=== PATIENT | male | born 1980 | race Caucasian/White ===

== ENCOUNTER 2017-08-04 01:55 | Emergency (ER) | payer OTHER ==
--- NOTE | 2017-08-04 02:00 | EDPHY ---
H & P Time Seen by Provider: 08/04/17 01:59 HPI/ROS: Chief complaint: Sore throat, painful swelling, change in voice. HPI: This is a 36-year-old medically stable male who has longstanding history of hypertension. I that a chance to review all records. Of note is that in 2012 there was some question as to his alcohol intake being excessive. At this time he states he has does not believe he has an alcohol problem and is not currently actively drinking. He has a negative CAGE Questionnaire He is here tonight for sore throat. This began some 4 nights ago. It is associated with painful swallowing. At times he has had some sense of fever but no actual temperatures have been taken. Furthermore he has not noted swollen glands, changes in his hearing, or other symptoms. Specifically he has had no plugging of nose, nasal drainage, nor blowing of nose nor cough. He did get the seasonal influenza this year. His spouse is really had a cough but that was resolved. He has had no known exposure to anybody with concurrent strep or other sore throat problems. Furthermore, he has not had any temperature exposures such as smoking a pipe which might damage his uvula-see below. The sore throat is moderate to severe. He tried some Tylenol approximately 28 hr ago 1000 mg with little relief. He has not tried any ibuprofen. When talking about using them in combination I offered to him a stronger medicine such as Vicodin or oxycodone. He has declined. ROS: Constitutional - subjective sense of fever, but no chills Eyes - no discharge, or injection ENT - no earache, change in hearing, difficulty swallowing. Respiratory - No Shortness of breath, phlegm, wheezing or pleuritic chest pain. There is no cough. Musculoskeletal - no joint or muscle pain. Integument - no rashes. Neurological - no headache, numbness, tingling, or paresthesias. No focal motor weakness. Immunological - no swelling or lymphadenopathy 10 point ROS otherwise negative Physical Exam: Gen: Well developed, well nourished. Nontoxic. afebrile VSS thin man. He is able to handle his secretions however his voice does sound somewhat muffled. HEENT: Normocephalic. Ears: TMs are clear. Hearing normal as tested by finger rubbing. Eyes: PERRL. No conjunctival injection or pallor. no jaundice. Nose: No nasal discharge. Sinuses are nontender. Throat: Membranes are moist. Oropharynx is without erythema or exudate. He has a muffled voice. There is a small degree of uvula edema, but not as much as I would expect to explain his change in voice. There is no laryngeal tenderness. Neck: Trachea is in the ML. No laryngeal tenderness. No adenopathy Lungs: No respiratory distress. Skin: Good color, without pallor. There is no diaphoresis. Skin is warm and dry , without diaphoresis. Intact without rashes Constitutional: Initial Vital Signs Temperature (C) 37.0 C 08/04/17 01:56 Heart Rate 78 08/04/17 01:56 Respiratory Rate 18 08/04/17 01:56 Blood Pressure 150/96 H 08/04/17 01:56 O2 Sat (%) 96 08/04/17 01:56 O2 Delivery Mode Room Air Allergies/Adverse Reactions: No Known Allergies Allergy (Unverified 06/17/13 10:21) Home Medications: Medication Instructions Recorded Lisinopril 06/17/13 Clindamycin 2 tab PO Q6 #80 cap 08/04/17 Medical Decision Making - Diagnostics Imaging Results: My Plain Film Review: Plain film of neck soft tissue three view series. Film reviewed by me on the [employer], and interpreted by me contemporaneously as follows: Normal retropharynx. No signs of retropharyngeal abscess. Normal epiglottis. Imaging: I viewed and interpreted images myself ED Course/Re-evaluation: A strep check performed at triage was negative on a preliminary basis He was given both Tylenol and Ibuprofen for his pain. Given his change in voice with minimal findings though slight uvular edema a soft tissue series of the neck was performed as follows: Negative for epiglottitis. Differential Diagnosis: Diagnostic considerations include, but are not limited to, the following: Retropharyngeal abscess, epiglottitis, URI, sinusitis, pharyngitis, otitis media , pneumonia, allergy, influenza, strep throat, viral pharyngitis, uvulitis - Data Points Laboratory Results: 08/04/17 Unknown Group A Strep DNA NEGATIVE (NEGATIVE) Medications Given: Discontinued Medications Acetaminophen (Tylenol) 1,000 mg PO EDNOW ONE Stop: 08/04/17 02:21 Last Admin: 02/03/18 02:21 Dose: 1,000 mg Clindamycin (Clindamycin) 300 mg PO EDNOW ONE PRN Reason: Protocol Stop: 08/04/17 02:46 Last Admin: 08/04/17 02:48 Dose: 300 mg Dexamethasone (Decadron) 10 mg PO EDNOW ONE Stop: 08/04/17 02:40 Last Admin: 08/04/17 02:47 Dose: 10 mg Ibuprofen (Motrin) 400 mg PO EDNOW ONE Stop: 08/04/17 02:21 Last Admin: 08/04/17 02:21 Dose: 400 mg Departure - Departure Disposition: Home, Routine, Self-Care Clinical Impression: Uvulitis Condition: Good Instructions: Clindamycin (By mouth), Strep Throat (ED), Uvulitis (ED) Additional Instructions: Tylenol and Advil works well together the combination: Tylenol 650 mg and Advil 400 mg every 6 hours. Your given a dose of Decadron here. This will last for 3 days, you will not need to take anything further. Antibiotic: Clindamycin. If when you get to the pharmacy it is too expensive for you, have them call us to see about an alternative. If you developed diarrhea while on the antibiotic, Call your family physician. Blood pressure was a little high tonight, 150/96. It might be due to your illness as you have not slept well. Nonetheless, have this rechecked in the next week when your feeling better. Referrals: Patient,NotPresent [Primary Care Provider] - As per Instructions Stand Alone Forms: Work Excuse Prescriptions: Clindamycin 2 tab PO Q6 #80 cap
[2017-08-04 02:02] VITALS: RESP 18; O2SAT 96
[2017-08-04] MEDS ORDERED: IBUPROFEN 200 MG TAB PO ONE ×2 (02:17→02:20)
[2017-08-04] MEDS ORDERED: ACETAMINOPHEN 500 MG TAB ONE (02:19)
[2017-08-04] MEDS ORDERED: ACETAMINOPHEN 500 MG TAB PO ONE (02:20)
[2017-08-04] MEDS ORDERED: DEXAMETHASONE 4 MG TAB PO ONE (02:39)
[2017-08-04] MEDS ORDERED: CLINDAMYCIN 150 MG CAP PO ONE (02:45)
[2017-08-04] MEDS ORDERED: CLINDAMYCIN 150 MG CAP ONE ×2 (02:46→02:47)
[2017-08-04 03:03] VITALS: BP 148/90; PULSE 72; TEMP 99
== END 2017-08-04 03:07 | disposition home or self-care (01) ==
LOC: CED 01:55
DX: K12.2 Cellulitis and abscess of mouth (principal)
CPT/HCPCS: 70360-PO; 87880-PO

== ENCOUNTER 2017-10-03 22:33 | Emergency (ER) | payer OTHER ==
[2017-10-03] MEDS ORDERED: CARBAMIDE PEROXIDE 15 ML OTIC.BTL RTEAR ONE (22:35)
--- NOTE | 2017-10-03 22:37 | EDPHY ---
H & P Time Seen by Provider: 10/03/17 22:37 HPI/ROS: HPI CHIEF COMPLAINT: Clogged right ear HISTORY OF PRESENT ILLNESS: Patient 36-year-old male, history of hypertension, otherwise healthy does not take any daily medications except lisinopril he presents emergency room with a clogged right ear. Patient states that he cannot hear out of his right ear. He is concerned that he may have gotten water in it today. Denies any fever significant pain. Past Medical History: Hypertension on lisinopril Past Surgical History: Denies recent surgical history Social History: Denies drugs alcohol tobacco Family History: Noncontributory ROS REVIEW OF SYSTEMS: A comprehensive 10 point review of systems is otherwise negative aside from elements mentioned in the history of present illness. Exam Constitutional appears well nontoxic no acute distress triage nursing summary reviewed, vital signs reviewed, awake/alert. Eyes normal conjunctivae and sclera, EOMI, PERRLA. HENT right ear canal shows cerumen impaction no visible foreign body, unable to visualize TM due to cerumen impaction, left TM canal normal posterior pharynx normal normal inspection, atraumatic, moist mucus membranes, no epistaxis, neck supple/ no meningismus, no raccoon eyes. Respiratory clear to auscultation bilaterally, normal breath sounds, no respiratory distress, no wheezing. Cardiovascular rate normal, regular rhythm, no murmur, no edema, distal pulses normal. Gastrointestinal soft, non-tender, no rebound, no guarding, normal bowel sounds, no distension, no pulsatile mass. Genitourinary no CVA tenderness. Musculoskeletal no midline vertebral tenderness, full range of motion, no calf swelling, no tenderness of extremities, no meningismus, good pulses, neurovascularly intact. Skin pink, warm, & dry, no rash, skin atraumatic. Neurologic awake, alert and oriented x 3, AAOx3, moves all 4 extremities equally, motor intact, sensory intact, CN II-XII intact, normal cerebellar, normal vision, normal speech. Psychiatric normal mood/affect. Heme/Lymph/Immune no lymphadenopathy. Differential Diagnosis: Includes but is not limited to in a particular order cerumen impaction Medical Decision Making: Plan for this patient will irrigate right ear out to remove cerumen to get patient relief. 2239: Will irrigate ear canal out. 2243: Patient's right ear canal was irrigated out. Improved symptoms. Cerumen was removed. Source: Patient - Medical/Surgical History Hx Asthma: No Hx Chronic Respiratory Disease: No Hx Diabetes: No Hx Cardiac Disease: No Hx Renal Disease: No Hx Alcoholism: Yes Hx HIV/AIDS: No Hx Splenectomy or Spleen Trauma: No Other PMH: htn. Anxiety - Social History Smoking Status: Former smoker Allergies/Adverse Reactions: No Known Allergies Allergy (Unverified 06/17/13 10:21) Home Medications: Medication Instructions Recorded Lisinopril 06/17/13 Clindamycin 2 tab PO Q6 #80 cap 08/04/17 Departure - Departure Disposition: Home, Routine, Self-Care Clinical Impression: Cerumen impaction Qualifiers: Laterality: right Qualified Code(s): H61.21 - Impacted cerumen, right ear Condition: Good Instructions: Cerumen Impaction (ED)
[2017-10-03] MEDS ORDERED: CARBAMIDE PEROXIDE 15 ML OTIC.BTL ONE (22:41)
[2017-10-03 22:48] VITALS: TEMP 97.9
[2017-10-03 23:17] VITALS: BP 150/98; PULSE 65; RESP 14; O2SAT 99
== END 2017-10-03 23:10 | disposition home or self-care (01) ==
LOC: CED 22:33
PROC: 3E1B78Z Irrigation of Ear using Irrigating Substance, Via Natural or Artificial Opening (ICD-10-PCS; principal; 2017-10-03)
DX: H61.21 Impacted cerumen, right ear (principal); I10 Essential (primary) hypertension; Z87.891 Personal history of nicotine dependence

== ENCOUNTER 2017-12-29 14:45 | Emergency (ER) | payer OTHER ==
--- NOTE | 2017-12-29 14:59 | EDPHY ---
H & P Stated Complaint: R arm pain and epigastric pain starting today. Denies NVD, chest pain, SOB Time Seen by Provider: 12/29/17 14:59 HPI/ROS: HPI CHIEF COMPLAINT: Abdominal pain HISTORY OF PRESENT ILLNESS: Patient 37-year-old male, history of hypertension, he presents emergency room multiple complaints however his main complaint is epigastric abdominal pain. States this started around 11:00 a.m. Is now 3 o' clock in the afternoon. He has had constant for the past 4 hr. It got better after he ate. He denies any chest pain or shortness of breath or pleuritic pain. Main complaint epigastric abdominal pain that does not radiate anywhere. Describes achy in sensation. He has not any vomiting he denies any nausea or diarrhea denies urinary symptoms denies back pain or chest pain. Denies focal numbness or tingling. Additional complaint he states that he has had right shoulder pain for months and is worse after he goes to lift up something. It is laterally located on his right shoulder. Worse when he moves his right arm. Or when he does strenuous activity. Past Medical History: Hypertension Past Surgical History: Denies any abdominal surgeries Social History: Denies drugs alcohol tobacco. Family History: Noncontributory ROS REVIEW OF SYSTEMS: A comprehensive 10 point review of systems is otherwise negative aside from elements mentioned in the history of present illness. Exam Constitutional nontoxic appearing in no acute distress triage nursing summary reviewed, vital signs reviewed, awake/alert. Eyes normal conjunctivae and sclera, EOMI, PERRLA. HENT normal inspection, atraumatic, moist mucus membranes, no epistaxis, neck supple/ no meningismus, no raccoon eyes. Respiratory clear to auscultation bilaterally, normal breath sounds, no respiratory distress, no wheezing. Cardiovascular rate normal, regular rhythm, no murmur, no edema, distal pulses normal. Gastrointestinal mild tender palpation epigastric, no rebound, no guarding, normal bowel sounds, no distension, no pulsatile mass. Genitourinary no CVA tenderness. Musculoskeletal no midline vertebral tenderness, full range of motion, no calf swelling, no tenderness of extremities, no meningismus, good pulses, neurovascularly intact. Skin pink, warm, & dry, no rash, skin atraumatic. Neurologic awake, alert and oriented x 3, AAOx3, moves all 4 extremities equally, motor intact, sensory intact, CN II-XII intact, normal cerebellar, normal vision, normal speech. Psychiatric normal mood/affect. Heme/Lymph/Immune no lymphadenopathy. Differential diagnosis includes but is not limited to and in no particular order : Bowel obstruction, appendicitis, gallbladder disease, diverticulitis, colitis , enteritis, perforated viscus, gastritis, GERD, esophagitis, urinary tract infection, pyelonephritis, kidney stones Medical Decision Making: Plan for this patient IV establishment IV fluid bolus GI cocktail to see if this improves his discomfort, EKG, chest x-ray, abdominal labs, low threshold for imaging. Re-evaluation: EKG interpretation by me on record in [employer] system. Impression time of EKG 1509, this is sinus rhythm rate of 80 to there is no ST elevation or ST depression no significant T-wave abnormalities unremarkable nonischemic EKG. ED x-ray chest one view negative for acute cardiopulmonary disease. 1720: Patient re-evaluated this time resting comfortably no acute distress abdomen is soft nontender. He is not vomiting. States he feels much better after GI cocktail. Review his labs show a normal troponin. Normal lipase. He has a nonischemic EKG. Additionally chest anxious shows no acute cardiopulmonary disease. I believe his epigastric discomfort is consistent with gastritis. Versus peptic ulcer disease. Recommend illness the medication follow up with his primary care doctor. Additionally he understands to return to the emergency room if he develops worsening abdominal pain fever vomiting. He understands. Source: Patient - Personal History Current Tetanus Diphtheria and Acellular Pertussis (TDAP): Yes Tetanus Vaccine Date: within 10 years - Medical/Surgical History Hx Asthma: No Hx Chronic Respiratory Disease: No Hx Diabetes: No Hx Cardiac Disease: No Hx Renal Disease: No Hx Cirrhosis: No Hx Alcoholism: Yes Hx HIV/AIDS: No Hx Splenectomy or Spleen Trauma: No Other PMH: HTN. Anxiety - Social History Smoking Status: Former smoker Constitutional: Initial Vital Signs Temperature (C) 36.6 C 12/29/17 14:50 Heart Rate 79 12/29/17 14:50 Respiratory Rate 18 12/29/17 14:50 Blood Pressure 143/102 H 12/29/17 14:50 O2 Sat (%) 98 12/29/17 14:50 O2 Delivery Mode Room Air Allergies/Adverse Reactions: No Known Allergies Allergy (Verified 06/30/18 14:50) Home Medications: Medication Instructions Recorded Lisinopril 06/17/13 Ranitidine HCl [Zantac] 150 mg PO DAILY #14 tablet 12/29/17 Medical Decision Making - Diagnostics Imaging Results: Imaging Impressions Chest X-Ray 12/29/17 15:05 Impression: Negative. - Data Points Laboratory Results: Laboratory Results 12/29/17 15:00 12/29/17 12/29/17 12/29/17 16:03 15:49 15:22 WBC RBC Hgb Hct MCV MCH MCHC RDW Plt Count MPV Neut % (Auto) Lymph % (Auto) [place] % (Auto) Eos % (Auto) Baso % (Auto) Nucleat RBC Rel Count Absolute Neuts (auto) Absolute Lymphs (auto) Absolute Monos (auto) Absolute Eos (auto) Absolute Basos (auto) Absolute Nucleated RBC Immature Gran % Immature Gran # POC Blood Source Patient Temperature POC VBG pH POC VBG pCO2 POC VBG pO2 POC VBG HCO3 POC VBG Total CO2 POC VBG Base Excess POC Mix VBG O2 Sat POC Sodium 140 mEq/L mEq/L (135-145) POC Potassium 4.0 mEq/L mEq/L (3.3-5.0) POC Chloride 106.0 mEq/L mEq/L (97-110) POC Total CO2 28 mEq/L mEq/L (22-31) POC BUN 18 mg/dL mg/dL (7-23) POC Creatinine 1.5 mg/dL H mg/dL (0.7-1.3) POC Glucose 70 mg/dL mg/dL (70-100) POC Lactic Acid [place] POC Calcium 9.4 mg/dL mg/dL (8.5-10.4) POC Total Bilirubin 0.9 mg/dL mg/dL 0.8 mg/dL mg/dL (0.1-1.4) (0.1-1.4) POC GGT 12 IU/L IU/L (5-65) POC AST 36 IU/L IU/L 38 IU/L IU/L (17-59) (17-59) POC ALT 29 IU/L IU/L 36 IU/L IU/L (21-72) (21-72) POC Alk Phosphatase 63 IU/L IU/L 68 IU/L IU/L (38-126) (38-126) POC Troponin I 0.00 ng/mL ng/mL (0.00-0.08) POC Total Protein 7.1 g/dL g/dL 7.4 g/dL g/dL (6.3-8.2) (6.3-8.2) POC Albumin 4.0 g/dL g/dL 4.0 g/dL g/dL (3.5-5.0) (3.5-5.0) POC Amylase 72 IU/L IU/L (30-110) Lipase Urine Color Urine Appearance Urine pH Ur Specific [place] Urine Protein Urine Ketones Urine Blood Urine Nitrate Urine Bilirubin Urine Urobilinogen Ur Leukocyte Esterase Urine Glucose 12/29/17 12/29/17 12/29/17 15:18 15:13 15:00 WBC 7.56 10^3/uL 10^3/uL (3.80-9.50) RBC 5.03 10^6/uL 10^6/uL (4.40-6.38) Hgb 14.9 g/dL g/dL (13.7-17.5) Hct 43.5 % % (40.0-51.0) MCV 86.5 fL fL (81.5-99.8) MCH 29.6 pg pg (27.9-34.1) MCHC 34.3 g/dL g/dL (32.4-36.7) RDW 13.2 % % (11.5-15.2) Plt Count 195 10^3/uL 10^3/uL (150-400) MPV 9.9 fL fL (8.7-11.7) Neut % (Auto) 63.4 % % (39.3-74.2) Lymph % (Auto) 23.7 % % (15.0-45.0) [place] % (Auto) 8.6 % % (4.5-13.0) Eos % (Auto) 2.6 % % (0.6-7.6) Baso % (Auto) 0.8 % % (0.3-1.7) Nucleat RBC Rel Count 0.0 % % (0.0-0.2) Absolute Neuts (auto) 4.79 10^3/uL 10^3/uL (1.70-6.50) Absolute Lymphs (auto) 1.79 10^3/uL 10^3/uL (1.00-3.00) Absolute Monos (auto) 0.65 10^3/uL 10^3/uL (0.30-0.80) Absolute Eos (auto) 0.20 10^3/uL 10^3/uL (0.03-0.40) Absolute Basos (auto) 0.06 10^3/uL 10^3/uL (0.02-0.10) Absolute Nucleated RBC 0.00 10^3/uL 10^3/uL (0-0.01) Immature Gran % 0.9 % % (0.0-1.1) Immature Gran # 0.07 10^3/uL 10^3/uL (0.00-0.10) POC Blood Source VENOUS Patient Temperature 37.0 DEGREES DEGREES POC VBG pH 7.37 (7.31-7.42) POC VBG pCO2 46 mmHg H mmHg (40-44) POC VBG pO2 31 mmHg L mmHg (35-40) POC VBG HCO3 26 mEq/L mEq/L (22-26) POC VBG Total CO2 28 mEq/L H mEq/L (21-27) POC VBG Base Excess 1.0 mEq/L mEq/L (-2.5-2.5) POC Mix VBG O2 Sat 56 % L % (65-75) POC Sodium POC Potassium POC Chloride POC Total CO2 POC BUN POC Creatinine POC Glucose POC Lactic Acid [place] 1.0 mmol/L mmol/L (0.7-2.1) POC Calcium POC Total Bilirubin POC GGT POC AST POC ALT POC Alk Phosphatase POC Troponin I POC Total Protein POC Albumin POC Amylase Lipase Urine Color YELLOW Urine Appearance CLEAR Urine pH 5.0 (5.0-7.5) Ur Specific [place] 1.021 (1.002-1.030) Urine Protein NEGATIVE (NEGATIVE) Urine Ketones NEGATIVE (NEGATIVE) Urine Blood NEGATIVE (NEGATIVE) Urine Nitrate NEGATIVE (NEGATIVE) Urine Bilirubin NEGATIVE (NEGATIVE) Urine Urobilinogen NEGATIVE EU EU (0.2-1.0) Ur Leukocyte Esterase NEGATIVE (NEGATIVE) Urine Glucose NEGATIVE (NEGATIVE) 12/29/17 15:00 WBC RBC Hgb Hct MCV MCH MCHC RDW Plt Count MPV Neut % (Auto) Lymph % (Auto) [place] % (Auto) Eos % (Auto) Baso % (Auto) Nucleat RBC Rel Count Absolute Neuts (auto) Absolute Lymphs (auto) Absolute Monos (auto) Absolute Eos (auto) Absolute Basos (auto) Absolute Nucleated RBC Immature Gran % Immature Gran # POC Blood Source Patient Temperature POC VBG pH POC VBG pCO2 POC VBG pO2 POC VBG HCO3 POC VBG Total CO2 POC VBG Base Excess POC Mix VBG O2 Sat POC Sodium POC Potassium POC Chloride POC Total CO2 POC BUN POC Creatinine POC Glucose POC Lactic Acid [place] POC Calcium POC Total Bilirubin POC GGT POC AST POC ALT POC Alk Phosphatase POC Troponin I POC Total Protein POC Albumin POC Amylase Lipase 111 IU/L IU/L (23-300) Urine Color Urine Appearance Urine pH Ur Specific [place] Urine Protein Urine Ketones Urine Blood Urine Nitrate Urine Bilirubin Urine Urobilinogen Ur Leukocyte Esterase Urine Glucose Medications Given: Discontinued Medications Al Hydroxide/Mg Hydroxide (Maalox Susp) 30 ml PO ONCE ONE Stop: 12/29/17 15:05 Last Admin: 12/29/17 15:22 Dose: 30 ml Hyoscyamine Sulfate (Levsin, Hyomax-Sl) 0.25 mg PO ONCE ONE Stop: 12/29/17 15:05 Last Admin: 12/29/17 15:22 Dose: 0.25 mg Sodium Chloride (Ns) 1,000 mls @ 0 mls/hr IV EDNOW ONE; Wide Open PRN Reason: Protocol Stop: 12/29/17 15:05 Last Admin: 12/29/17 15:22 Dose: 1,000 mls Lidocaine (Lidocaine 2% Viscous) 15 ml PO ONCE ONE Stop: 12/29/17 15:05 Last Admin: 12/29/17 15:22 Dose: 15 ml Point of Care Test Results: Chemistry 12/29/17 12/29/17 12/29/17 16:03 15:49 15:22 POC Sodium 140 mEq/L mEq/L (135-145) POC Potassium 4.0 mEq/L mEq/L (3.3-5.0) POC Chloride 106.0 mEq/L mEq/L (97-110) POC Total CO2 28 mEq/L mEq/L (22-31) POC BUN 18 mg/dL mg/dL (7-23) POC Creatinine 1.5 mg/dL H mg/dL (0.7-1.3) POC Glucose 70 mg/dL mg/dL (70-100) POC Calcium 9.4 mg/dL mg/dL (8.5-10.4) POC Total Bilirubin 0.9 mg/dL mg/dL 0.8 mg/dL mg/dL (0.1-1.4) (0.1-1.4) POC GGT 12 IU/L IU/L (5-65) POC AST 36 IU/L IU/L 38 IU/L IU/L (17-59) (17-59) POC ALT 29 IU/L IU/L 36 IU/L IU/L (21-72) (21-72) POC Alk Phosphatase 63 IU/L IU/L 68 IU/L IU/L (38-126) (38-126) POC Troponin I 0.00 ng/mL ng/mL (0.00-0.08) POC Total Protein 7.1 g/dL g/dL 7.4 g/dL g/dL (6.3-8.2) (6.3-8.2) POC Albumin 4.0 g/dL g/dL 4.0 g/dL g/dL (3.5-5.0) (3.5-5.0) POC Amylase 72 IU/L IU/L (30-110) Blood Gas/Lactic Acid-Arterial 12/29/17 15:18 POC Blood Source VENOUS Blood Gas/Lactic Acid-Venous 12/29/17 15:18 POC VBG pH 7.37 (7.31-7.42) POC VBG pCO2 46 mmHg H mmHg (40-44) POC VBG pO2 31 mmHg L mmHg (35-40) POC VBG HCO3 26 mEq/L mEq/L (22-26) POC VBG Total CO2 28 mEq/L H mEq/L (21-27) POC VBG Base Excess 1.0 mEq/L mEq/L (-2.5-2.5) POC Mix VBG O2 Sat 56 % L % (65-75) POC Lactic Acid [place] 1.0 mmol/L mmol/L (0.7-2.1) Departure - Departure Disposition: Home, Routine, Self-Care Clinical Impression: Abdominal pain Qualifiers: Abdominal location: epigastric Qualified Code(s): R10.13 - Epigastric pain Condition: Good Instructions: Gastritis (ED), Acute Abdominal Pain (ED) Additional Instructions: 1. Stay away from fatty greasy spicy foods. 2. Return emergency room if he develops worsening abdominal pain fever vomiting 3. Zantac as prescribed. 4. Follow up with your primary care doctor. Referrals: NONE *PRIMARY CARE P,. [Primary Care Provider] - As per Instructions Prescriptions: Ranitidine HCl [Zantac] 150 mg PO DAILY #14 tablet
[2017-12-29] MEDS ORDERED: MAG HYDROX/AL HYDROX/SIMETH 30 ML UDCUP PO ONE (15:04)
[2017-12-29] MEDS ORDERED: NS 1,000 ML IV ONE (15:04)
[2017-12-29] MEDS ORDERED: LIDOCAINE 2% VISCOUS 15 ML UDCUP PO ONE (15:04)
[2017-12-29] MEDS ORDERED: HYOSCYAMINE SULFATE 0.125 MG TAB PO ONE (15:04)
--- NOTE | 2017-12-29 15:12 | CPEKG ---
Heart Rate: 82 RR Interval: 732 P-R Interval: 172 QRSD Interval: 90 QT Interval: 360 QTC Interval: 421 P [place]: 56 QRS [place]: 54 T Wave [place]: 44 EKG Severity - NORMAL ECG - EKG Impression: SINUS RHYTHM Electronically Signed By: Jhoan Bernal 29-Dec-2017 22:43:51
[2017-12-29 16:16] LABS: PLATELET COUNT 195 10^3/uL (150-400)
[2017-12-29 19:10] VITALS: BP 128/71
== END 2017-12-29 18:40 | disposition home or self-care (01) ==
LOC: CED 14:45
DX: R10.13 Epigastric pain (principal); I10 Essential (primary) hypertension; E86.9 Volume depletion, unspecified; Z87.891 Personal history of nicotine dependence
CPT/HCPCS: 71045-PO; 80053-PO; 80076-PO; 82150-PO; 83605-PO; 84484-PO